=== PATIENT | female | born 1995 | race Caucasian/White ===

== ENCOUNTER 2016-04-24 14:15 | Emergency (ER) | payer BC ==
[~2016-04-24] VITALS: Ht 160 cm; Wt 98.0 kg
[~2016-04-24 14:15] MED LIST: NAPR500 PO
[2016-04-24 14:19] VITALS: BP 132/83; PULSE 80; RESP 15; TEMP 98.1; O2SAT 95
== END 2016-04-24 18:55 | disposition left against medical advice (07) ==
LOC: NED 14:15
DX: K92.9 Disease of digestive system, unspecified (principal)
CPT/HCPCS: 99281

== ENCOUNTER 2017-08-11 10:45 | Emergency (ER) | payer BC ==
[2017-08-11 10:48] VITALS: BP 148/82; PULSE 80; RESP 16; TEMP 98.4; O2SAT 98
--- NOTE | 2017-08-11 11:06 | PD ---
HPI Chief Complaint: Back/ Neck Pain or Injury Time Seen by Provider: 10:51 Travel History International Travel<30 days: No Contact w/Intl Traveler<30days: No Traveled to known affect area: No History of Present Illness HPI 22-year-old otherwise healthy female presents to the emergency room for evaluation of severe right lower back pain for the past day and a half. Patient states she was cleaning her house when the pain started. Pain occasionally radiates down her leg. Worse with range of motion. She took Tylenol without relief in symptoms. Patient reports one episode of dysuria but denies urgency, frequency, or hematuria. She denies any saddle anesthesia, loss of bowel or bladder control, lower extremity paresthesias, IV drug use, unintentional weight loss, fever, chills, or night sweats. Last menstrual cycle ended yesterday. PFSH Past Medical History Medical History: Denies Significant Hx Cardiovascular Problems: No (HIGH CHOLESTEROL) Tetanus Vaccination: < 5 Years ?: Not LMP: just got over : 0 Ovarian Cysts: Yes Social History Alcohol Use: No Tobacco Use: No Substance Use: No Allergies-Medications (Allergen,Severity, Reaction): Coded Allergies: No Known Allergies (Unverified Adverse Reaction, Unknown, 08/11/17) Reported Meds & Prescriptions Reported Meds & Active Scripts Active Keflex (Cephalexin) 500 Mg Capsule 500 Mg PO Q6H 7 Days Robaxin (Methocarbamol) 750 Mg Tab 750 Mg PO Q8HR Ibuprofen 600 Mg Tab 600 Mg PO Q8HR PRN Review of Systems Except as stated in HPI: all other systems reviewed are Neg Physical Exam Narrative GENERAL: Well-nourished, morbidly obese female no acute distress. Afebrile. Ambulatory. SKIN: Focused skin assessment warm/dry. No erythema or ecchymosis. HEAD: Normocephalic. EYES: No scleral icterus. No injection or drainage. NECK: Supple, trachea midline. No JVD or lymphadenopathy. CARDIOVASCULAR: Regular rate and rhythm without murmurs, gallops, or rubs. RESPIRATORY: Breath sounds equal bilaterally. No accessory muscle use. BACK: Mild right-sided CVA tenderness. No rash. No point tenderness on palpation of the spine. Data Data Last Documented VS Vital Signs Date Time Temp Pulse Resp B/P (MAP) Pulse Ox O2 Delivery O2 Flow Rate FiO2 08/11/17 10:48 98.4 80 16 148/82 (104) 98 Orders Orders Urinalysis - C+S If Indicated (08/11/17 10:54) Urine Culture (08/11/17 11:00) Ibuprofen (Motrin) (08/11/17 11:45) Ed Discharge Order (08/11/17 11:50) Labs Laboratory Tests Test 08/11/17 11:00 Urine Color YELLOW Urine Turbidity CLEAR Urine pH 6.0 Urine Specific [place] 1.023 Urine Protein NEG mg/dL Urine Glucose (UA) NEG mg/dL Urine Ketones NEG mg/dL Urine Occult Blood MOD Urine Nitrite NEG Urine Bilirubin NEG Urine Urobilinogen LESS THAN 2.0 MG/DL Urine Leukocyte Esterase LARGE Urine RBC 19 /hpf Urine WBC 30 /hpf Urine Squamous Epithelial Cells 6 /hpf Urine Mucus FEW /lpf Microscopic Urinalysis Comment CULTURE INDICATED MDM Medical Decision Making Medical Screen Exam Complete: Yes Emergency Medical Condition: Yes Medical Record Reviewed: Yes Differential Diagnosis Muscle spasm, strain, contusion, fracture, dislocation Narrative Course 22-year-old female presents to the emergency room for evaluation right lower back pain for the past day and a half. No trauma or injury. Physical exam reveals tenderness to palpation of the right lower lumbar region. No red flag symptoms. No indication for imaging at this time. UA shows signs of infection. There is some blood in the urine the patient just got off her period yesterday. I have low suspicion for kidney stone as the pain is radiating down her buttocks. Patient will be treated for sciatica with ibuprofen the emergency room. Discharged with prescription for ibuprofen, Robaxin, and Keflex. She was told to follow-up with primary care physician or return for any signs of kidney stone. She understands and agrees to plan. Diagnosis Primary Impression: Sciatica Qualified Codes: M54.31 - Sciatica, right side Additional Impression: Urinary tract infection Qualified Codes: N30.01 - Acute cystitis with hematuria Referrals: Primary Care Physician Departure Forms: Tests/Procedures, Work Release Enter return to work date: Aug 12, 2017 Additional Instructions: Rest and drink plenty of fluids. Keflex as directed, until gone. Take Robaxin as directed, as needed for pain. Take ibuprofen with food as directed, as needed for pain. Apply ice to the affected area for 20 minutes at a time, as needed for pain and swelling. Follow-up with a primary care physician. Return to the emergency room for worsening symptoms. Med/Other Pt SpecificInfo: Prescription(s) given Scripts Cephalexin (Keflex) 500 Mg Capsule 500 MG PO Q6H for Infection for 7 Days, #28 CAP 0 Refills Prov: Paula Wu MD 08/11/17 Methocarbamol (Robaxin) 750 Mg Tab 750 MG PO Q8HR for Muscle Spasm, #15 TAB 0 Refills Prov: Paula Wu MD 08/11/17 Ibuprofen (Ibuprofen) 600 Mg Tab 600 MG PO Q8HR Y for PAIN, #21 TAB 0 Refills Prov: Paula Wu MD 08/11/17 Disposition: 01 DISCHARGE HOME Condition: Stable Kathryn Viera Aug 11, 2017 11:06
[2017-08-11 11:41] LABS: BILIRUBIN, URINE NEG (NEG); BLOOD, URINE MOD (NEG); GLUCOSE,URINE NEG (NEG); KETONE, URINE NEG (NEG); MUCUS URINE FEW /lpf (OCC); NITRITE,URINE NEG (NEG); SQUAMOUS EPITHELIAL CELL URINE 6 /hpf (0-5); URINE COLOR YELLOW (YELLW/STRAW); URINE LEUKOCYTE ESTERASE LARGE (NEG)
[2017-08-11] MEDS ORDERED: IBUPROFEN 800 MG TAB PO ONE (11:45)
[2017-08-11] MEDS ORDERED: CEPH-460 PO (11:50)
[2017-08-11] MEDS ORDERED: IBUP-232 PO (11:50)
[2017-08-11] MEDS ORDERED: ROBA750T PO (11:50)
== END 2017-08-11 12:02 | disposition home or self-care (01) ==
LOC: NEPK 10:45
DX: M54.41 Lumbago with sciatica, right side (principal); N30.01 Acute cystitis with hematuria
CPT/HCPCS: 81001; 87086; 99283